=== PATIENT | female | born 1955 | race Caucasian/White ===

== ENCOUNTER 2017-01-15 17:59 | Emergency (ER) | payer MEDICARE, BC ==
[2017-01-15] MEDS ORDERED: ALBUTEROL SULFATE 2.5 MG/3 ML VIAL.NEB IH ONE (18:43)
[2017-01-15] MEDS ORDERED: MORPHINE SULFATE 4 MG/ML SYRG IM ONE (18:43)
--- OUTSIDE RECORDS SUMMARY | 2017-01-15 18:43 | XMS REPORT | Clinical Summary ---
:1955 Author Organization [facility] Address Unavailable [place] [address] Care Team Providers Name Role Phone Unavailable Primary Care Provider Unavailable Source Comments This disclosure is being made pursuant to the Advanced [employer] program and maynot contain all information available regarding this patient.[facility] Allergies Active Allergy Reactions Severity Noted Date Comments Baclofen Other (See Comments) 03/10/2014 [id number]-[id number]-Nrzkknjy Other (See Comments) 03/10/2014 Ciprofloxacin Nausea And Vomiting Medium 03/10/2014 Diphenhydramine Other (See Comments) 03/10/2014 Ketorolac Tromethamine Other (See Comments) 03/10/2014 Meperidine Other (See Comments) 03/10/2014 Mesalamine Er Other (See Comments) 03/10/2014 Pregabalin Other (See Comments) 03/10/2014 Sumatriptan Other (See Comments) 03/10/2014 Verapamil Anxiety Low 03/10/2014 Zolmitriptan Anxiety Low 03/10/2014 Zolpidem Other (See Comments) 03/10/2014 Current Medications Be aware that medications may not be up to date as of this document. Alwaysverify current medications with the patient. Prescription Sig. Disp. Refills Start Date End Date Status ALPRAZolam (XANAX) 0.5 Take 1 tablet by Active MG tablet mouth nightly. hydrocodone-acetaminophe Take 1 tablet by Active n (LORTAB) 7.5-500 MG mouth every 6 per tablet (six) hours as needed. PARoxetine (PAXIL) 40 MG Take 40 mg by Active tablet mouth every morning. hydrOXYzine (ATARAX) 25 Take 1 tablet by 0 01/02/2015 Active MG tablet mouth daily as needed. pantoprazole (PROTONIX) Take 1 tablet by 30 tablet 11 01/15/2015 Active 40 MG tablet mouth before breakfast. metroNIDAZOLE (FLAGYL) Take 1 tablet by 21 tablet 0 04/07/2016 Active 500 MG tablet mouth 3 (three) times daily. 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 Encounter for long-term (current) use of other medications 06/28/2013 Overview: Overview: DAMION BYNUM MD Constipation 06/27/2013 Overview: Overview: DAMION BYNUM MD Diarrhea 06/27/2013 Overview: Overview: DAMION BYNUM MD Esophageal reflux 06/23/2011 Overview: Overview: DAMION BYNUM MD Intestinal obstruction (HCC) 08/14/2010 Overview: Overview: Hollow visceral myopathy DAMION BYNUM MD Overview: DAMION BYNUM MD Abnormal loss of weight 08/14/2010 Overview: Overview: DAMION BYNUM MD Overview: DAMION BYNUM MD Nausea with vomiting 08/14/2010 Overview: Overview: DAMION BYNUM MD Nausea alone 08/14/2010 Overview: Overview: DAMION BYNUM MD Family History Medical History Relation Name Comments Heart disease Brother Hypertension Brother Diabetes Father Heart disease Father Hypertension Father Diabetes Mother Hypertension Mother Hypertension Sister Relation Name Status Comments Brother Father Mother Sister Social History Tobacco Use Types Packs/Day Years Used Date Current Every Day Smoker Smokeless Tobacco: Never Used Tobacco Cessation:Ready to Quit: No; Counseling Given: No Alcohol Use Drinks/Week oz/Week Comments No 0 Standard drinks or equivalent 0.0 Alcoholic Drinks/day: ALCOHOL USE: NON-DRINKER Sex Assigned at Date Recorded Not on file Last Filed Vital Signs Vital Sign Reading Time Taken Blood Pressure 120/72 04/07/2016 3:12 PM CDT Pulse 72 04/07/2016 3:12 PM CDT Temperature 36.6 C (97.9 F) 04/07/2016 3:12 PM CDT Respiratory Rate - - Oxygen Saturation - - Inhaled Oxygen Concentration - - Weight 61.7 kg (136 lb) 04/07/2016 3:12 PM CDT Height 174 cm (5' 8.5") 04/07/2016 3:12 PM CDT Body Mass Index 20.38 04/07/2016 3:12 PM CDT Plan of Treatment Health Maintenance Due Date Last Done Comments Hepatitis C Screening 1974 Pneumococcal Medium Risk 19-64 yo (1 of 1 08/20/1975 - PPSV23) Tetanus/Pertussis (1 - Tdap) 08/20/1975 Pap Smear 1977 Mammogram 2006 Well Adult Visit 2006 INFLUENZA IMMUNIZATION (#1) 2016 Zoster Vaccine 60+ 2016 Colonoscopy 07/19/2023 07/19/2013, 07/19/2013 Results Not on filefrom Last 3 Months Insurance Payer Benefit Plan / Subscriber ID Type Phone Address Group MEDICARE MEDICARE A AND B [id number] [phone] [address] [place] [id number] [employer] [place] [place] [id number] [phone] [address] [place] SUPPLEMENT [address] [place] [id number] [id number] [place] [id number]
--- OUTSIDE RECORDS SUMMARY | 2017-01-15 18:43 | XMS REPORT | Encounter Summary ---
:1955 Author Organization [facility] [place] [address] Care Team Providers Name Role Phone Unavailable Primary Care Provider Unavailable Encounter Details Date Type Department Care Team Description 05/20/2016 Orders Only [facility] Provider, Not In Centralized Scanning System Social History Tobacco Use Types Packs/Day Years Used Date Current Every Day Smoker Smokeless Tobacco: Never Used Alcohol Use Drinks/Week oz/Week Comments No 0 Standard drinks or equivalent 0.0 Alcoholic Drinks/day: ALCOHOL USE: NON-DRINKER Sex Assigned at Date Recorded Not on file as of this encounter Plan of Treatment Not on fileas of this encounter Results Tissue Exam (04/15/2016) Specimen Performing Laboratory Tissue in this encounter Visit Diagnoses Not on filein this encounter
--- OUTSIDE RECORDS SUMMARY | 2017-01-15 18:43 | XMS REPORT | Encounter Summary ---
:1955 Author Organization [facility] [place] [address] Care Team Providers Name Role Phone Unavailable Primary Care Provider Unavailable Encounter Details Date Type Department Care Team Description 04/24/2016 Orders Only [facility] Provider, Not In Centralized Scanning System Social History Tobacco Use Types Packs/Day Years Used Date Current Every Day Smoker Smokeless Tobacco: Never Used Alcohol Use Drinks/Week oz/Week Comments No 0 Standard drinks or equivalent 0.0 Alcoholic Drinks/day: ALCOHOL USE: NON-DRINKER Sex Assigned at Date Recorded Not on file as of this encounter Plan of Treatment Not on fileas of this encounter Visit Diagnoses Not on filein this encounter
--- OUTSIDE RECORDS SUMMARY | 2017-01-15 18:43 | XMS REPORT | Encounter Summary ---
:1955 Author Organization [facility] [place] [address] Care Team Providers Name Role Phone Unavailable Primary Care Provider Unavailable Encounter Details Date Type Department Care Team Description 05/07/2016 Abstract [facility] Abeba Hoffman, [facility] Gastroenterology [address] [place] [id number] [place] [id number] Social History Tobacco Use Types Packs/Day Years [...]
[2017-01-15] MEDS ORDERED: ALBUTEROL SULFATE 2.5 MG/0.5 ML VIAL.NEB IH ONE (18:45)
[2017-01-15] MEDS ORDERED: MORPHINE SULFATE 4 MG/ML SYRG ONE (18:45)
--- NOTE | 2017-01-15 18:50 | ERNOTE ---
ENT HPI Presenting Symptoms: other Time Seen by Provider: 01/15/17 18:36 Source: patient Exam Limitations: no limitations - Immun/Allergies/Home Medications Immunizations: IMMUNIZATION HX Immunizations Up to Date Yes History of Influenza Vaccine Yes Hx Pneumococcal Vaccination Yes Allergies/Adverse Reactions: Allergies Allergy/AdvReac Type Severity Reaction Status Date / Time ketorolac [From Toradol] Allergy Verified 01/15/17 18:17 meperidine [From Demerol] Allergy Verified 01/15/17 18:17 metoclopramide [From Reglan] Allergy Verified 01/15/17 18:18 sumatriptan [From Imitrex] Allergy Verified 01/15/17 18:17 verapamil Allergy Verified 01/15/17 18:17 zolmitriptan [From Zomig] Allergy Verified 01/15/17 18:17 Home Medications: HOME MEDICATIONS ALPRAZolam [Xanax] 0.5 mg PO DAILY 01/15/17 [Last Taken Unknown] Albuterol Sulfate [Proair Hfa] 2 puff IH Q4H PRN #1 inhaler 01/15/17 [Last Taken Unknown] HYDROcodone/ACETAMINOPHEN [Vicodin Es 7.5-300 mg Tablet] 1 each PO TID 01/15/17 [Last Taken Unknown] Nystatin 5 ml PO QID #200 oral.susp 01/15/17 [Last Taken Unknown] PARoxetine HCL [Paxil] 40 mg PO DAILY 01/15/17 [Last Taken Unknown] - History of Present Illness Narrative: Patient is here for a sore throat that she has had for two months. She was seen by Dr Rodriguez and diagnosed with strep throat and started on keflex. He symptoms have not improved and she has a hard time to get her medications down. She has a history of chronic pain that she takes vicodin for, has only been able to keep one pill down today. 35pack year of smoking, daily cough,some shortness of breath, no diagnosis of COPD, no inhaler use Review of Systems - Review of Systems Constitutional: Present: recent illness, malaise. Absent: fever ENT: Present: sore throat. Absent: ear pain, nose pain, nose congestion, nasal drainage, throat swelling Respiratory: Present: See HPI, shortness of breath, cough Cardiology: Present: See HPI. Absent: chest pain Gastrointestinal/Abdominal: Present: vomiting - intermittent (chronic, 'all my life'), diarrhea - loose BM chronic. Absent: nausea, abdominal pain Genitourinary: Present: no symptoms reported Musculoskeletal: Present: other - chronic pain in knee and shoulders Skin: Absent: rash Neurological: Present: headache. Absent: weakness, numbness - Patient's Past Medical History Patient History - Medical: Anxiety, Chronic Pain, Depression, Headache Patient History - Cardiac/Respiratory: No pertinent hx Patient History - Cancer: No Hx of Cancer Patient History - Surgical Procedures: , Other Patient History - Other: None LMP (females 10-50): post menopausal - Social History Living Situations: home Psych History: Hx of Anxiety, Hx of Depression, Current tx/ever been on anti- depressants or anti-anxiety meds Smoking Status: Current every day smoker Alcohol Use: none Drug Use: none - Immunizations Immunizations Up to Date: Yes Hx Pneumococcal Vaccination: Yes History of Influenza Vaccine: Yes Physical Exam - Physical Exam General Appearance: Present: wd/wn, alert, mild distress, anxious Eye Exam: Normal inspection: bilateral, PERRL: bilateral Ears, Nose, Throat: Present: normal except -, pharyngeal erythema, other - small amount of whitish material on tongue and cheek. Absent: pharyngeal swelling Neck: Present: normal inspection Respiratory: Present: no respiratory distress, no accessory muscle use, lungs clear, decreased breath sounds, expiration (prolonged) Cardiovascular/Chest: Present: regular rate, rhythm, no murmur Neurological Exam: Present: alert, oriented, normal mood/affect Skin Exam: Present: normal color, warm/dry ED Progress - Results and Orders Patient's Lab Results:: I have reviewed the patient's lab results. - Vital Signs Patient's Vital Signs:: I have reviewed the patient's vital signs. Vital Signs: Vital Signs 01/15/17 18:09 Temperature 36.4 C L Pulse Rate 81 Respiratory 16 Rate Blood Pressure 111/56 O2 Sat by Pulse 99 Oximetry - Progress/Reassessment Chief Complaint: Sore Throat Progress Note-Subjective: 01/15/17 19:33 feeling better after neb treatment, improved air movement pain better after morphine, no requesting phenergan for nausea (which she takes at home as needed) Departure Clinical Impression: Oral thrush COPD (chronic obstructive pulmonary disease) Qualifiers: COPD type: unspecified COPD Qualified Code(s): J44.9 - Chronic obstructive pulmonary disease, unspecified - Departure Disposition: Home self-care Condition: Fair Instructions: Stomatitis, [id number] Additional Instructions: call your doctor for follow up Referrals: Lars Rodriguez DO [Primary Care Provider] - Prescriptions: Albuterol Sulfate [Proair Hfa] 2 puff IH Q4H PRN #1 inhaler PRN Reason: Shortness Of Breath Nystatin 5 ml PO QID #200 oral.susp
[2017-01-15] MEDS ORDERED: PROMETHAZINE HCL 25 MG/ML AMPUL IM ONE (19:30)
[2017-01-15] MEDS ORDERED: PROMETHAZINE HCL 25 MG/ML AMPUL ONE (19:31)
[2017-01-16 16:32] VITALS: BP 135/60
== END 2017-01-15 19:39 | disposition home or self-care (01) ==
LOC: ER 17:59
DX: B37.0 Candidal stomatitis (principal); J44.9 Chronic obstructive pulmonary disease, unspecified; F41.8 Other specified anxiety disorders; G89.29 Other chronic pain; F17.200 Nicotine dependence, unspecified, uncomplicated